=== PATIENT | male | born 1985 | race Caucasian/White ===

== ENCOUNTER 2019-04-04 22:52 | Emergency (ER) | payer OTHER, MEDICAID ==
[~2019-04-04] VITALS: Ht 170.2 cm; Wt 81.6 kg
[2019-04-04] MEDS ORDERED: ondansetron/PF 4mg/2ml inj IV ONE (23:10)
[2019-04-04] MEDS ORDERED: normal saline 1000ml 1,000 ML IV ONE (23:10)
--- NOTE | 2019-04-04 23:16 | NUR ---
Pt to CT via stretcher.
--- NOTE | 2019-04-04 23:18 | NUR ---
PT TO CT WITH KATJA VILLALBA AND CT STAFF
--- NOTE | 2019-04-04 23:21 | NUR ---
LUCAS INCREASED TO 2 DUE TO SEVARITY OF INJURY AND MECHINISM OF INJURY
[2019-04-04 23:31] LABS: BASOPHILS % (AUTO) 0.2 % (0-1); EOSINOPHILS % (AUTO) 0.2 % (0-6); HEMATOCRIT 40.8 % (42.0-52.0); HEMOGLOBIN 13.8 g/dl (14.0-17.9); MEAN CORPUSCULAR HEMOGLOBIN 30.4 PG (27.0-31.0); MEAN CORPUSCULAR HGB CONC 33.8 g/dL (33.0-36.5); MEAN CORPUSCULAR VOLUME 89.7 FL (78-98); MONOCYTES # (AUTO) 1.3 X10'3 (0-0.9); NEUTROPHILS # (AUTO) 16.9 X10'3 (1.8-7.7); NEUTROPHILS % (AUTO) 87.6 % (42-75); PLATELET COUNT 335 X10'3 (140-440); RED BLOOD COUNT 4.55 X10'6 (4.70-6.10); RED CELL DISTRIBUTION WIDTH 12.5 % (11.5-14.5); WHITE BLOOD COUNT 19.3 X10'3 (4.5-11.0)
--- NOTE | 2019-04-04 23:38 | NUR ---
PT RETURNED FROM CT AND XRAY .
[2019-04-04 23:40] LABS: ALANINE AMINOTRANSFERASE 35 U/L (12-78); ALBUMIN 4.4 G/DL (3.4-5.0); ALBUMIN/GLOBULIN RATIO 1.1 (1.1-1.5); ALKALINE PHOSPHATASE 78 IU/L (46-116); ANION GAP 16 (8-16); ASPARTATE AMINO TRANSFERASE 32 U/L (10-37); BILIRUBIN,TOTAL 0.3 MG/DL (0.1-1.0); BLOOD UREA NITROGEN 18 MG/DL (7-18); BUN/CREATININE RATIO 13.3 (5.4-32.0); CALCIUM 9.1 MG/DL (8.5-10.1); CHLORIDE 103 MMOL/L (99-107); CREATININE 1.35 MG/DL (0.60-1.10); GLUCOSE 169 MG/DL (70-104); POTASSIUM 3.7 MMOL/L (3.5-5.1); SODIUM 144 MMOL/L (135-145); TOTAL CARBON DIOXIDE 25.5 MMOL/L (24-32); TOTAL PROTEIN 8.5 G/DL (6.4-8.2); eGFR 61 ML/MIN
[2019-04-04 23:43] LABS: ETHANOL < 0.010 GM/DL (0.0-0.010); TROPONIN I < 0.04 NG/ML (0.0-0.05)
[2019-04-04] MEDS ORDERED: iohexol 300mg/ml 100ml inj. ONE (23:59)
[2019-04-05] MEDS ORDERED: clindamycin phosphate inj 600 MG in normal saline 50ml IV soln 50 ML IV ONE (00:10)
[2019-04-05] MEDS ORDERED: clindamycin 600mg/D5W 50ml 50 ML IV ONE (00:15)
--- NOTE | 2019-04-05 00:58 | NUR ---
DR PENA TO SEE PT . REMOVED C SPINE
--- NOTE | 2019-04-05 01:03 | NUR ---
PT TO WASH OFF HIS FACE AND REPOSITION HIMSELF ON HIS RIGHT SIDE WITHOUT COMPLIANTS OF DISCOMFORT
[2019-04-05 01:08] LABS: CLARITY,URINE CLEAR (Clear); COLOR,URINE YELLOW (Yellow); GLUCOSE, URINE 100 mg/dl (Neg); KETONES,URINE 15 mg/dl (Neg); LEUKOCYTE ESTERASE ,URINE NEGATIVE (Neg); NITRITES, URINE NEGATIVE (Neg); OCCULT BLOOD,URINE TRACE-INTACT (Neg); PROTEIN,URINE TRACE mg/dl (Neg); UROBILINOGEN,URINE 0.2 E.U/dL (0.2-1.0)
[2019-04-05 01:12] LABS: UA COLLECTION TYPE VOIDED
[2019-04-05 01:13] LABS: BACTERIA,URINE NONE SEEN /HPF (Neg); MUCUS STRANDS FEW /LPF (Neg); RBC,URINE 0-2 /HPF (0-2); SQUAMOUS EPITHELIAL CELL,UR FEW /LPF (FEW); WBC,URINE NONE SEEN /HPF (0-4)
[2019-04-05 01:17] LABS: URINE AMPHETAMINE SCREEN NEGATIVE (Neg); URINE BARBITUATE SCREEN NEGATIVE (Neg); URINE BENZODIAZEPINES SCREEN POSITIVE (Neg); URINE CANNABINOID SCREEN POSITIVE (Neg); URINE COCAINE SCREEN NEGATIVE (Neg); URINE METHADONE SCREEN POSITIVE (Neg); URINE OPIATE SCREEN NEGATIVE (Neg); URINE PHENCYCLIDINE SCREEN NEGATIVE (Neg)
--- NOTE | 2019-04-05 01:37 | NUR ---
REPORT CALLED TO GRETCHEN LAU RN
--- NOTE | 2019-04-05 01:40 | NUR ---
DR PEARSON WAS THE ACCEPTING PHYSCIAN
--- NOTE | 2019-04-05 01:58 | NUR ---
[facility] , [facility] ANTON[facility] TO TRANSPORT PT TO [facility] ER LEFT UNIT VIA GURNEY PT ALOC X4 RATES PAIN 3-4 /10 TO LOW BACK . O2 SAT 93 RA BP 129/81 HR 94 RESP 18
[2019-04-05 05:14] VITALS: BP 133/60
== END 2019-04-05 01:55 | disposition short-term general hospital (02) ==
LOC: ER 22:53
DX: S02.82XA Fracture of other specified skull and facial bones, left side, initial encounter for closed fracture (principal); S02.81XA Fracture of other specified skull and facial bones, right side, initial encounter for closed fracture; S22.43XA Multiple fractures of ribs, bilateral, initial encounter for closed fracture; S32.018A Other fracture of first lumbar vertebra, initial encounter for closed fracture; S00.11XA Contusion of right eyelid and periocular area, initial encounter; H57.89 Other specified disorders of eye and adnexa; R10.9 Unspecified abdominal pain; V49.88XA Car occupant (driver) (passenger) injured in other specified transport accidents, initial encounter; Y93.89 Activity, other specified; Y92.488 Other paved roadways as the place of occurrence of the external cause; Y99.8 Other external cause status
CPT/HCPCS: 36415; 70450; 70486; 71045; 71260; 72125; 72131; 74177; 80053; 80305; 80320; 81001; 84484; 85025; 86885; 86900; 86901; 93005; 96365; 96375; 99285; J2405; J7030; Q9967; J3490